=== PATIENT | male | born 1950 | race Caucasian/White ===

== ENCOUNTER 2017-02-15 23:11 | Emergency (ER) | payer OTHER ==
[2017-02-16] MEDS ORDERED: MECLIZINE HCL 25 MG TABLET (FP) PO ONE (01:28)
[2017-02-16] MEDS ORDERED: SODIUM CHLORIDE 0.9% 1000 ML INFUS.BAG IV ONE (01:28)
--- NOTE | 2017-02-16 02:00 | PDOC ---
History of Present Illness - General Stated Complaint: DIZZINESS Time Seen by Provider: 02/16/17 00:43 - History of Present Illness Initial Comments: 02/16/17 01:50 CHIEF COMPLAINT: dizziness HISTORY OF PRESENT ILLNESS: 67 yo M with hx of HTN presents to ED with c/o of dizziness. Patient states that he was driving home after an argument with his significant other and suddenly felt dizzy. Patient reports cough since mid- January as well, states that it is "smoker's cough." Patient denies any No recent travel or sick contacts. PAST MEDICAL HISTORY: as per HPI FAMILY HISTORY: Denies SOCIAL HISTORY: Current smoker. Social alcohol use. Denies illicit drug use. SURGICAL HISTORY: "prostate" ALLERGIES: No known drug allergies REVIEW OF SYSTEMS General/Constitutional: Denies fever or chills. Denies weakness, weight change. HEENT: Denies change in vision. Denies ear pain or discharge. Denies sore throat. Cardiovascular: Denies chest pain or shortness of breath. Respiratory: "I have smoker's cough." Denies wheezing, or hemoptysis. Gastrointestinal: Denies nausea, vomiting, diarrhea or constipation. Genitourinary: Denies dysuria, frequency, or change in urination. Musculoskeletal: Denies joint or muscle swelling or pain. Denies neck or back pain. Skin and breasts: Denies rash or easy bruising. Neurologic: Dizziness. Denies headache, vertigo, loss of consciousness, or loss of sensation. PHYSICAL EXAM General Appearance: Well-appearing, appropriately dressed. No apparent distress. HEENT: EOMI, PERRLA, normal ENT inspection, normal voice, TMs normal, pharynx normal. No conjunctival pallor. No photophobia, scleral icterus. Respiratory/Chest: Lungs CTAB. Cardiovascular: RRR. S1, S2. Gastrointestinal/Abdominal: Normal bowel sounds. Abdomen soft, non-distended. No tenderness or rebound tenderness. No organomegaly, pulsatile mass, guarding , hernia, hepatomegaly, splenomegaly. Musculoskeletal/Extremities: Normal inspection. FROM of all extremities, normal capillary refill. Pelvis Stable. No CVA tenderness. No tenderness to extremities, pedal edema, swelling, erythema or deformity. Integumentary: Appropriate color, dry, warm. No cyanosis, erythema, jaundice or rash Neurologic: jewelsmith II-XII intact. Fully oriented, alert. Appropriate mood/affect. Motor strength 5/5. No appreciable EOM palsy, facial droop or sensory deficit.A &Ox3, follow commands, respond appropriately CN2-12: conjugate gaze, pupil round, equal and reactive to light. Visual field full to confrontation. EOMI without nystagmus, pursuit is smooth without saccade. Facial sensation and muscle activation intact bilaterally. Hearing intact bilaterally. Palate elevate symmetrically. Shoulder shrug and neck turn full strength. Tongue protrude midline. Motor: UE and LE strength 5/5 throughout bilaterally. Muscle tone and bulk normal. Cerebellar: Rapid-alternating movement with regular rhythm without bradykinesia. Eemfgh-dn-[id number] and tkid-bf-qehf intact bilaterally without dysmetria or overshoot. Gait narrow based. No shuffling. Full hip flexion and knee flexion. Negative Romberg No involuntary movement noted. No pronator drift. No clonus. Past History - Past Medical History Allergies/Adverse Reactions: Allergies Allergy/AdvReac Type Severity Reaction Status Date / Time Penicillins Allergy Verified 02/16/17 05:10 Home Medications: Ambulatory Orders Lisinopril [Prinivil] 20 mg PO DAILY 02/16/17 Tadalafil [Cialis] 5 mg PO DAILY 02/16/17 ED Treatment Course - LABORATORY CBC & Chemistry Diagram: 02/16/17 02:22 02/16/17 02:22 - RADIOLOGY Radiology Studies Ordered: Category Date Time Status CHEST PA & LAT [RAD] Stat Radiology 02/16/17 01:40 Ordered Medical Decision Making - Medical Decision Making 02/16/17 02:00 67 yo M with hx of HTN presents to ED with c/o of dizziness. VS remarkable for HR 117. -CBC, CMP -IVF, meclizine Patient refused IVF and meclizine, stating he is no longer dizzy at this time. Patient persistently coughing; will order chest x-ray r/o pneumonia. Labs: WBC 11.2, otherwise unremarkable. Patient continues to be tachy to 109. Patient initially refused x-ray, stating that he "really doesn't like x-rays, and I do not want a CT, I really will not get a CT here." 02/16/17 06:25 CXR positive for suspicious mass to L upper lobe, requiring follow up with CT. Patient left prior to receiving discharge instructions. Attempted to call patient to discuss follow up and discharge instructions; unable to reach patient, left voicemail requesting call back. *DC/Admit/Observation/Transfer Diagnosis at time of Disposition: Cough, Vertigo - Discharge Dispostion Admit: No - Patient Instructions Printed Discharge Instructions: DI for Cough -- Adult, DI for Vertigo Additional Instructions: Please drink plenty of fluids and stay hydrated. You MUST see your primary care doctor in the city this week to follow up with the abnormality on your x-ray. You may need a CT of your chest to check for malignancy. If you develop any worsening cough, blood in your phlegm, shortness of breath, chest pain, fever, chills, headache, blurry vision, weakness, difficulty speaking or swallowing, or any new or worsening symptoms, please return to the ER.
[2017-02-16 02:09] VITALS: BP 130/90; TEMP 97.9; BMI 25.7
[2017-02-16 02:39] LABS: BASOPHIL 0.7 % (0-2.0); EOSINOPHIL 4.1 % (0-4.5); MCH 32.5 pg (25.7-33.7); MCHC 34.1 g/dl (32.0-35.9); MEAN CELL VOLUME 95.3 fl (80-96); MEAN PLT VOLUME 7.7 fl (7.5-11.1); NEUTROPHILS 75.9 % (42.8-82.8); PLATELET COUNT 379 K/MM3 (134-434); RDW 13.5 % (11.9-15.9); WHITE BLOOD COUNT 11.2 K/mm3 (4.0-10.0)
[2017-02-16 03:00] LABS: ALBUMIN 3.2 g/dl (3.4-5.0); ALK PHOS 90 U/L (45-117); ANION GAP 9 (8-16); BILIRUBIN,TOTAL 0.3 mg/dL (0.2-1.0); CALCIUM 8.7 mg/dL (8.5-10.1); CO2 26 mmol/L (21-32); CREATININE 0.9 mg/dL (0.7-1.3); GLUCOSE,RANDOM 118 mg/dL (74-106); SGOT/AST 21 U/L (15-37); SGPT/ALT 26 U/L (12-78); TOT PROT 6.7 g/dl (6.4-8.2)
[2017-02-16 03:09] VITALS: PULSE 109
--- NOTE | 2017-02-16 17:32 | EKG ---
Test Reason : Blood Pressure : / mmHG Vent. Rate : 107 BPM Atrial Rate : 107 BPM P-R Int : 160 ms QRS Dur : 094 ms QT Int : 342 ms P-R-T Axes : 062 -63 066 degrees QTc Int : 456 ms SINUS TACHYCARDIA BASELINE ARTIFACTS LEFT ANTERIOR FASCICULAR BLOCK ABNORMAL ECG NO PREVIOUS ECGS AVAILABLE REPEAT EKG IF CLINICALLY INDICATED Confirmed by ALVERTO ORR MD ([id number] on 02/16/2017 5:32:21 PM Referred By: Confirmed By:ALVERTO ORR MD
== END 2017-02-16 07:00 | disposition home or self-care (01) ==
LOC: JER 23:11
DX: R42 Dizziness and giddiness (principal); R05 Cough
CPT/HCPCS: 36415; 71020-TC; 80053; 85025; 93005; 93010; 99283-25